=== PATIENT | male | born 1995 | race Caucasian/White ===

== ENCOUNTER 2017-03-04 21:27 | Emergency (ER) | payer BC, OTHER ==
[~2017-03-04] VITALS: Ht 177.8 cm; Wt 95.3 kg
[~2017-03-04 21:27] MED LIST: BACTRIM DS 8001 TA1 PO; CARAFATE1 G1 PO; CLARITIN5 MG/5 ML PO; CORDROL20 MG PO; IBU-6600 MG PO; IRON1 CHI; MACROBID100 M1 PO; MOTRIN600 MG PO; MOTRIN800 MG PO; Motrin,Rufen800 MG PO; NKHM; PEPCID20 MG PO; PRELONE5 MG/5 ML PO; PRILOSEC20 M1 PO; PROMETHAZINE25 M1 PO; ZOFRAN ODT4 MG SL
[2017-03-04 21:41] VITALS: BP 144/83
[2017-03-04] MEDS ORDERED: CYCLOBENZAPRINE10 MG PO (23:20)
== END 2017-03-04 23:22 | disposition home or self-care (01) ==
LOC: ED 21:27
DX: M54.32 Sciatica, left side (principal); Z90.49 Acquired absence of other specified parts of digestive tract; Z79.899 Other long term (current) drug therapy; Z88.6 Allergy status to analgesic agent; Z88.0 Allergy status to penicillin

== ENCOUNTER 2022-08-01 17:14 | Emergency (ER) | payer BC ==
[~2022-08-01] VITALS: Ht 177.8 cm; Wt 102.1 kg
[~2022-08-01 17:14] MED LIST changes: +CYCLOBENZAPRINE10 MG PO
[2022-08-01] MEDS ORDERED: HYDROCODONE-AC1 EAC1 PO (18:22)
== END 2022-08-01 18:29 | disposition home or self-care (01) ==
LOC: ED 17:14
DX: S92.354A Nondisplaced fracture of fifth metatarsal bone, right foot, initial encounter for closed fracture (principal); Z88.6 Allergy status to analgesic agent; Z88.0 Allergy status to penicillin; Z79.899 Other long term (current) drug therapy; Z90.49 Acquired absence of other specified parts of digestive tract; X58.XXXA Exposure to other specified factors, initial encounter; Y93.89 Activity, other specified; Y92.89 Other specified places as the place of occurrence of the external cause; Y99.8 Other external cause status

== ENCOUNTER 2025-08-16 10:01 | Emergency (ER) | payer SELFPAY ==
[~2025-08-16] VITALS: Ht 177.8 cm; Wt 108.9 kg
[~2025-08-16 10:01] MED LIST changes: +HYDROCODONE-AC1 EAC1 PO
[2025-08-16 11:01] VITALS: BP 114/72
[2025-08-16 11:19] LABS: BASO # 0.0 10*3/uL (0.0-0.1); BASO % 0.4 % (0.0-1.0); EOS # 0.1 10*3/uL (0.0-0.4); EOS % 1.2 % (1.0-4.0); MEAN CELL VOLUME 90.2 fl (80.0-94.0); MEAN CORPUSCULAR HGB 30.2 pg (27.0-31.0); MEAN PLATELET VOLUME 8.7 fl (9.6-12.3); MONO # 0.8 10*3/uL (0.1-1.0); MONO % 8.5 % (3.0-9.0); NEUT # 5.9 10*3/uL (2.3-7.9); NEUT % 63.0 % (47.0-73.0); NUCLEATED RED BLOOD CELL 0.0 % (0.0-0.0); NUCLEATED RED BLOOD CELL 0.0 10*3/uL (0.0-0.0); PLATELET COUNT AUTOMATED 324 10*3/uL (130-400); RED CELL DISTRI WIDTH 12.6 % (0-14.5)
[2025-08-16 11:39] LABS: BUN 7 mg/dl (9-23)
[2025-08-16 11:59] LABS: BILIRUBIN Negative (Negative); BLOOD Negative (Negative); CLARITY Clear (Clear); COLOR Yellow (Yellow); KETONE Negative (Negative); LEUKO ESTERASE Trace (Negative); NITRITE Negative (Negative); SPECIFIC GRAVITY 1.025 (1.001-1.030); UROBILINOGEN 1.0 E.U./dl (0.0-1.0)
[2025-08-16 12:03] LABS: PH 8.5 (4.5-8.0)
[2025-08-16 12:11] LABS: BACTERIA 1+
[2025-08-16] MEDS ORDERED: VIBRAMYCIN100 MG PO (14:52)
[2025-08-16] MEDS ORDERED: TYLE3UD PO (14:52)
== END 2025-08-16 14:57 | disposition home or self-care (01) ==
LOC: ED 10:01
PROVIDERS: Emergency Medicine
DX: N43.3 Hydrocele, unspecified (principal); N50.812 Left testicular pain; Z88.6 Allergy status to analgesic agent; Z88.0 Allergy status to penicillin; Z90.49 Acquired absence of other specified parts of digestive tract